=== PATIENT | female | born 1960 | race American Indian/Alaskan Native ===

== ENCOUNTER 2019-09-20 10:58 | Day surgery (SDC) | payer MEDICARE ==
--- NOTE | 2019-09-20 10:54 | Anesthesia Day of Surgery ---
Anesthesia Day of Surgery - Day of Surgery Patient Examined: Yes Patient H&P Reviewed: Yes Patient is NPO: Yes Beta Blockers: No Cardiac Clearance: No Pulmonary Clearance: No Santos's Test: N/A
[~2019-09-20 10:58] MED LIST: SODIUM CHLORIDE 0.9% 1000 ML 1,000 ML IV SCH
--- NOTE | 2019-09-20 11:38 | Anesthesia Consultation ---
Anesthesia Consult and Med Hx Date of service: 09/20/19 - Airway Anesthetic Teeth Evaluation: Good ROM Head & Neck: Adequate Mental/Hyoid Distance: Adequate Mallampati Class: Class II Intubation Access Assessment: Probably Good - Pre-Operative Health Status ASA Pre-Surgery Classification: ASA3 Proposed Anesthetic Plan: MAC - Pulmonary Hx Sleep Apnea: Yes - Cardiovascular System Hx Hypertension: Yes (Pt states she can slowly climb two flights of stairs) Hx Heart Attack/AMI: No (CHF-EF was 15% and now 45% per pt) Hx Internal Defibrillator: Yes ([id number] never discharged. Pt states battery life good) - Gastrointestinal Hx Gastroesophageal Reflux Disease: Yes - Endocrine Hx Non-Insulin Dependent Diabetes: Yes - Hematic Hx Sickle Cell Disease: No
[2019-09-20] MEDS ORDERED: fentaNYL 100 MCG/2 ML INJ ONE (11:43)
[2019-09-20] MEDS ORDERED: propofoL 200 MG/20 ML VIAL IV ONE ×2 (11:43)
--- NOTE | 2019-09-20 12:19 | Short Stay Summary ---
Short Stay Documentation Date of service: 09/20/19 Narrative H&P: The patient presents for upper endoscopy to evaluate chronic gastroesophageal reflux and upper abdominal pain including bloating. She also presents for colonoscopy surveillance due to a history of colon polyps. Her last study was 3 years ago and she was recommended to have a 3-year follow-up due to polyp characteristics. Reports were unavailable for prior colonoscopy study. - History Past Medical History: GERD, heart failure, hypertension Past Surgical History: No surgical history Social history: no significant social history - Allergies and Medications Current Medications: Allergies lisinopril Allergy (Intermediate, Verified 09/20/19 11:09) Unknown COUGH Home Medications Medication Instructions Recorded Confirmed Last Taken Type Aspirin BABY CHEW TAB 81 mg PO DAILY 09/20/19 09/20/19 09/20/19 History Atorvastatin 10 mg PO DAILY 09/20/19 09/20/19 09/19/19 History Furosemide 80 mg PO DAILY 09/20/19 09/20/19 09/20/19 History Losartan 100 mg PO DAILY 09/20/19 09/20/19 09/20/19 History Metoprolol 25 mg PO DAILY 09/20/19 09/20/19 09/20/19 History Omeprazole 40 mg PO DAILY 09/20/19 09/20/19 09/19/19 History Potassium Chloride 20 meq PO DAILY 09/20/19 09/20/19 09/19/19 History Spironolactone 25 mg PO DAILY 09/20/19 09/20/19 09/19/19 History Vitamin D3 50,000 mg PO QWEEK 09/20/19 09/20/19 08/23/19 History carvediloL 25 mg PO BID 09/20/19 09/20/19 09/20/19 History Active Medications Sodium Chloride (Nacl 0.9% 1000 Ml) 1,000 mls @ 50 mls/hr IV DIRECT MARILEE Last Admin: 09/20/19 11:35 Dose: 50 mls/hr Documented by: - Physical exam General appearance: no acute distress, well-nourished, obese Integumentary: no rash, no growths, no abnormal pigmentation HEENT: Atraumatic, PERRLA, EOMI, Mucous membr. moist/pink Lungs: Clear to auscultation, Normal air movement Breasts: deferred Heart: Regular rate, Normal S1, Normal S2, No murmurs Gastrointestinal: normoactive bowel sounds, no absent bowel sounds, no tenderness, no distended, no masses, no guarding, obese Female Genitourinary: deferred Rectal Exam: normal exam-external/orifice, no mass Extremities: no ischemia, pulses intact, pulses symmetrical, No edema, normal temperature, normal color Neurological: Normal gait, Normal speech, Strength at 5/5 X4 ext, Normal tone, Sensation intact, Cranial nerves 3-12 NL - Brief post op/procedure progress note Date of procedure: 09/20/19 Findings: See dictations. Estimated blood loss: none Pathology: list (1. duodenal biopies for exclusion of celiac disease. 2. antral biopsies for h.pylori 3. diminutive sessile sigmoid polyp) Specimen disposition: to lab Condition: stable - Disposition Condition at discharge: Good Disposition: DC-01 TO HOME OR SELFCARE - Discharge Diagnoses (1) Personal history of colonic polyps Status: Acute (2) Gastroesophageal reflux Status: Acute (3) Bloating Status: Acute Short Stay Discharge Plan Follow up with: HAZEL PANTOJA MD [Primary Care Provider] - 7 Days
--- NOTE | 2019-09-20 12:22 | Operative Report ---
Operative Report Operative Report: Date of procedure: 09/20/2019 Procedure: Esophagogastroduodenoscopy with biopsies of the duodenum to exclude celiac disease and biopsies of the antrum to assess for possible H. pylori infection. Preprocedure diagnosis: Bloating, chronic gastroesophageal reflux symptoms Post procedure diagnosis: Mild bulbar duodenitis. Normal stomach and esophagus. Endoscopist: Dr. Hopper Anesthesia: Monitored anesthesia care per anesthesia department Medications: Propofol per anesthesia Estimated blood loss: 0 After careful discussion of the nature and purpose of the procedure as well as details the technique risks benefits and alternatives consent was obtained. The patient was placed in the left lateral decubitus position and medicated per anesthesia. The tip of the [employer] EQ 570 video scope was passed per orum under direct vision into the esophagus and advanced into the stomach and descending d uodenum. The descending duodenum was normal. The duodenal bulb revealed patchy erythema but no erosions or ulcers. Multiple biopsies were taken in the second and third portion of the duodenum and one biopsy was taken from the bulb. The pylorus was symmetrical and normal. The scope was withdrawn into the stomach and the stomach then gently insufflated with air. The antrum was normal. Biopsies were taken for H. pylori in the prepyloric area. The stomach was further insufflated and the scope was then retroflexed and partially withdrawn. The cardia, fundus, and body of the stomach were within normal limits and easily distensible.The scope was then withdrawn in the forward position. The esophagogastric junction was at 40 cm. The esophageal body was normal throughout. The procedure was was well tolerated and the patient was observed in recovery. Impressions: Mild bulbar duodenitis, normal stomach and esophagus. Plan: Await biopsy results for possible H. pylori and celiac disease. The patient will call the office in 10 days to discuss the pathology findings and follow-up care. Electronically signed: Fernando Hopper MD
--- NOTE | 2019-09-20 12:24 | Operative Report ---
Operative Report Operative Report: Date of procedure: 09/20/2019 Preprocedure diagnosis: History of colon polyps. Last study 3 years ago with a recommendations for 3-year follow-up due to polyp characteristics. Post procedure diagnosis: Diminutive sigmoid colon polyp. Procedure: Colonoscopy to the cecum with cold snare resection of the sigmoid polyp. Endoscopist: Dr. Hopper Anesthesia: Monitored anesthesia care per anesthesia department Estimated blood loss: 0 Medications: Monitored anesthesia care. See separate report by anesthesia for details. After careful discussion of the nature and purpose of the procedure as well as details of the technique risks benefits and alternatives the patient gave consent. Please see recent history and physical from the office. The patient was placed in the left lateral decubitus position and medicated per anesthesia. A rectal exam was performed sphincter tone was normal there were no masses palpable. The [employer] ([employer]n 570 scope was passed transanally and advanced under continuous direct vision without difficulty to the cecum. The colon was well prepared. The cecum was normal. The ascending colon was normal and on forward and retroflexed views. The transverse colon and descending colon normal. There was a 5 mm sessile polyp in the distal descending colon. The polyp was removed with cold snare resection and retrieved by suction. The rectum was normal on forward and retroflexed views. The procedure was well-tolerated overall and the patient was observed in recovery. Conclusions: Diminutive sigmoid polyp, otherwise normal colon to the cecum. Plan: Repeat colonoscopy in 5 years. The patient will call the office in 10 days to discuss the pathology. Signed electronically: Fernando Hopper M.D.
[2019-09-20 12:57] VITALS: BP 115/59
--- NOTE | 2019-09-20 13:00 | Post Anesthesia Evaluation ---
- Post Anesthesia Evaluation Patient Participated: Yes Airway Patent: Yes Stable Respiratory Function: Yes Nausea/Vomiting: No Temp > 96.8F: Yes Pain Manageable: Yes Adequeate Hydration: Yes Anesthesia Complications: No Block Receding Appropriately: Not Applicable Patient on Ventilator: No
== END 2019-09-20 13:28 | disposition home or self-care (01) ==
LOC: GIO 10:58
PROVIDERS: ATTEND Internal Medicine Gastroenterology
DX: Z12.11 Encounter for screening for malignant neoplasm of colon (principal); K21.9 Gastro-esophageal reflux disease without esophagitis; R10.13 Epigastric pain; K63.5 Polyp of colon; K63.89 Other specified diseases of intestine; K31.89 Other diseases of stomach and duodenum; K29.80 Duodenitis without bleeding; I10 Essential (primary) hypertension; E11.9 Type 2 diabetes mellitus without complications; Z86.010 Personal history of colon polyps; Z88.8 Allergy status to other drugs, medicaments and biological substances; Z79.82 Long term (current) use of aspirin; Z79.899 Other long term (current) drug therapy
CPT/HCPCS: 43239; 45385; 82962; 88305; 88342; J2704; J3010